=== PATIENT | female | born 1995 ===

== ENCOUNTER → 2018-06-13 19:14 | Outpatient (REF) | payer OTHER, SELFPAY ==
[2018-06-13 19:35] LABS: Add Manual Diff / Slide Review NO; Basophils Percent Auto 0.5 % (0-2); Eosinophils Percent Auto 1.4 % (2-4); Hematocrit 42.8 % (36-46); Hemoglobin 14.6 g/dL (12.0-16.0); Lymphocytes Percent Auto 23.2 % (25-40); Mean Corpuscular Hemoglobin 30.6 PG (26-34); Monocytes Percent Auto 7.1 % (3-14); Neutrophils Absolute Auto 3800 /uL (3000-5900); Neutrophils Percent Auto 67.8 % (50-75); Platelet Count 248 X10^3/uL (150-400); Red Blood Cell Count 4.76 X10^6/uL (4.0-5.2); Red Cell Distribution Width 13.9 % (11.6-14.8); White Blood Cell Count 5.6 X10^3/uL (4.5-11.0)
[2018-06-13 19:39] LABS: Iron 110 ug/dL (37-170)
[2018-06-13 19:41] LABS: Alanine Aminotransferase 20 IU/L (9-52); Albumin 4.4 g/dL (3.5-5.0); Albumin Globulin Ratio 1.6 (1.0-2.8); Alkaline Phosphatase 46 U/L (38-126); Aspartate Aminotransferase 23 IU/L (14-36); BUN Creatinine Ratio 8.3 (6-22); Bilirubin Total 0.6 mg/dL (0.2-1.3); Blood Urea Nitrogen 5 mg/dL (7-17); Calcium 9.8 mg/dL (8.4-10.2); Carbon Dioxide 31 mmol/L (22-32); Chloride 104 mmol/L (98-107); Cholesterol 245 mg/dL (140-199); Estimated Glomerular Filt Rate > 60.0 mL/min (>60); Globulin 2.7 g/dL (1.7-4.1); Glucose 76 mg/dL (70-100); HDL Cholesterol 55 mg/dL (40-60); HEMOLYSIS < 15 (0-50); LDL Cholesterol Calculated 167 mg/dL (<100); Potassium 4.7 mmol/L (3.4-5.1); Sodium 144 mmol/L (137-145); Total Protein 7.1 g/dL (6.3-8.2); Triglycerides 116 mg/dL (35-150)
[2018-06-13 19:43] LABS: C-Reactive Protein Quant < 0.5 mg/dL (<1.0)
[2018-06-13 19:49] LABS: Hemoglobin A1C% w Est Avg Glu 5.1 % (4.0-6.0)
[2018-06-13 19:56] LABS: Free T3, Triiodothyronine Free 3.73 pg/mL (2.77-5.27); Free T4, Direct Thyroxine 1.06 ng/dL (0.78-2.19)
[2018-06-13 20:10] LABS: Thyroid Stimulating Hormone 0.53 uIU/mL (0.47-4.68)
[2018-06-13 20:13] LABS: Ferritin 16.9 ng/mL (6.27-137)
[2018-06-17 14:53] LABS: Dehydroepiandrosterone Sulfate 216 mcg/dL (18-391)
[2018-06-17 15:18] LABS: Estradiol 377 pg/mL
[2018-06-17 15:20] LABS: Progesterone < 0.5 ng/mL
[2018-06-20 13:27] LABS: Testosterone, Free 0.68 ng/dL
== END ==
LOC: LAB 19:14
PROVIDERS: Visit Provider Naturopath
DX: N92.6 Irregular menstruation, unspecified (principal)
CPT/HCPCS: 80053; 80061; 82627; 82670; 82728; 83036; 83540; 84144; 84402; 84439; 84443; 84481; 85025; 86140